=== PATIENT | male | born 1950 | race Caucasian/White ===

== ENCOUNTER 2024-12-21 15:51 | Observation (INO) | payer MEDICARE, MEDICAID, SELFPAY ==
[2024-12-21 16:00] VITALS: PULSE 68; RESP 16; O2SAT 97; BMI 24.4
[2024-12-21 16:13] VITALS: BP 98/60; PULSE 71; RESP 18; TEMP 37.1; O2SAT 98; BMI 24.4
--- NOTE | 2024-12-21 16:18 | XR_ITS ---
Examination: AP lateral chest 2 views TECHNIQUE: AP portable lateral chest 2 views Date and time: December 21, 2024 1630 hours Comparison July 07, 2022 INDICATION: Chest pain beginning 2 days ago. FINDINGS: Normal heart size Minimal stable scarring in the left base No interval pneumonia or pulmonary edema Moderate osteopenia IMPRESSION: No interval pneumonia or pulmonary edema
--- NOTE | 2024-12-21 16:18 | EKG_ITS ---
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
--- NOTE | 2024-12-21 16:19 | XR_ITS ---
Examination: CT abdomen and pelvis without contrast. Coronal 3-D reconstructions. Sagittal 2-D reconstructions. Date and time of exam:December 21, 2024 1637 hours INDICATIONS: Mid abdominal pain beginning several days ago CTDI: vol (mGy): 7.95 DLP: (mGycm): 393 Technique: Axial images of the abdomen have been obtained, 3 mm slice thickness Intravenous contrast material has not been administered. Low dose protocols were performed. One or more of the following dose reduction techniques were used; automated exposure control, adjustment of the mA and/or KV according to patient size, use of iterative reconstruction technique. Findings: No focal liver or splenic lesion Absent gallbladder Common bile duct 10 mm No pancreatic mass No hydronephrosis Fluid distended small bowel loops No pericecal inflammatory changes No bowel obstruction Colonic diverticulosis Acute diverticulitis junction distal descending colon and rectosigmoid No peridiverticular abscess Bilateral intact Extensive lumbar fusion with satisfactory alignment IMPRESSION: Acute diverticulitis junction distal descending colon and rectosigmoid No peridiverticular abscess
--- NOTE | 2024-12-21 16:19 | PD.EDRME ---
Rapid Medical Screening Exam RME Arrival date/time: 12/21/24 15:51 74-year-old male presents emergency department today for complaint of abdominal pain Chief Complaint: Abdominal Pain Time Seen by Provider: 12/21/24 16:03 Vital signs: Vital Signs Temperature 98.7 F 12/21/24 16:13 Pulse Rate 71 12/21/24 16:13 Respiratory Rate 18 12/21/24 16:13 Blood Pressure 98/60 12/21/24 16:13 Pulse Oximetry (%) 98 12/21/24 16:13 Oxygen Delivery Method Room Air 12/21/24 16:13
[2024-12-21 17:24] LABS: Basophils # (Auto) 0.1 Thou/mm3 (0.0-0.2); Basophils % (Auto) 1 % (0-2.5); Eosinophils # (Auto) 0.2 Thou/mm3 (0.0-0.5); Eosinophils % (Auto) 2 % (0-10); Hematocrit 31.5 % (41.0-53.0); Hemoglobin 10.7 g/dL (13.5-16.0); Immature Granulocytes % (Auto) 0 % (0-0); Immature Granulocytes Auto 0.02 Thou/mm3 (0.00-0.00); Lymphocytes # (Auto) 2.1 Thou/mm3 (1.0-4.8); Lymphocytes % (Auto) 23 % (10-50); Mean Corpuscular Hemoglobin 30.1 pg (25.0-35.0); Mean Corpuscular Volume 89 fL (80-100); Monocytes # (Auto) 0.7 Thou/mm3 (0.0-0.8); Monocytes % (Auto) 8 % (0-12); Neutrophils # (Auto) 6.2 Thou/mm3 (1.8-7.7); Neutrophils % (Auto) 66 % (37-80); Nucleated Red Blood Cell % 0 /100 WBC (0); Platelet Count 278 Thou/mm3 (140-440); RDW Standard Deviation 41.6 fL (35.1-43.9); Red Blood Count 3.55 Miln/mm3 (4.50-5.90); White Blood Count 9.4 Thou/mm3 (3.8-10.6)
[2024-12-21 17:30] LABS: Partial Thromboplastin Time 32.5 Seconds (22.0-36.0); Prothrombin Time 11.1 Seconds (9.0-12.2)
[2024-12-21 17:32] LABS: B-Type Natriuretic Peptide < 20 pg/mL (0-100)
[2024-12-21 17:44] LABS: Alanine Aminotransferase 9 U/L (10-49); Albumin, Serum 4.4 gm/dL (3.4-4.8); Albumin/Globulin Ratio 1.6 (1.2-2.2); Alkaline Phosphatase 79 U/L (46-116); Anion Gap 8 (7-16); Aspartate Amino Transferase 14 U/L (0-34); BUN/Creatinine Ratio 17 Ratio (12-20); Bilirubin,Total 0.2 mg/dL (0.3-1.2); Blood Urea Nitrogen 32 mg/dL (9-23); Calcium 8.9 mg/dL (8.3-10.6); Calcium (Corrected) 8.9 mg/dL (8.5-10.1); Carbon Dioxide 25.5 mMol/L (20.0-31.0); Chloride 105 mMol/L (98-107); Creatinine (Component) 1.9 mg/dL (0.6-1.3); Globulin 2.8 gm/dL (2.3-3.5); Glucose 110 mg/dL (74-106); LDH (Lactate Dehydrogenase) 140 U/L (120-246); Lipase 53 U/L (12-53); Magnesium 2.5 mg/dL (1.6-2.6); Osmolality,Calculated 283 (275-295); Potassium 5.9 mMol/L (3.4-5.1); Sodium 138 mMol/L (136-145); Total Protein 7.2 gm/dL (5.7-8.2); Troponin I < 0.002 ng/mL (0.0-0.045); eGFR 37 See Note
[2024-12-21 17:47] LABS: Collection Type, Urine Clean Catch
[2024-12-21 18:07] LABS: Amphetamine/Methamp Scrn,U Negative (Negative); Barbiturate Screen,Urine Negative (Negative); Benzodiazepines Screen,Urine Negative (Negative); Benzoylecgonine Screen, Ur Negative (Negative); Fentanyl Screen,Urine Negative (Negative); Opiate Screen,Urine Positive (Negative); THC Screen,Urine Negative (Negative)
[2024-12-21 18:35] LABS: Bilirubin,Urine Negative (Negative); Blood,Urine Negative (Negative); Clarity,Urine Clear (Clear/Hazy); Color,Urine Yellow (Lt Yel-Yel); Glucose, Urine Negative (Negative); Ketones,Urine Negative (Negative); Leukocyte Esterase,Urine Positive (Negative); Nitrite,Urine Positive (Negative); Protein,Urine Trace (Neg - Trace); Specific Gravity,Urine 1.017 (1.001-1.035); Urobilinogen,Urine Negative mg/dL (0.0-1.0)
[2024-12-21 18:36] LABS: RBC,Urine 2 /hpf (0-3); WBC,Urine 15 /hpf (0-5)
[2024-12-21 18:37] LABS: Bacteria,Urine 3+; Squamous Epithelial Cell,Urine 5 /hpf (0-5)
--- NOTE | 2024-12-21 20:33 | PD.EDABDPN ---
ED Abdominal Pain RME/HPI General Chief Complaint: Abdominal Pain Stated complaint: ABD PAIN Time seen by provider: 12/21/24 16:03 Arrival date/time: 12/21/24 15:51 RME / HPI RME / HPI narrative: 12/21/24 15:51 74-year-old male presents emergency department today for complaint of abdominal pain --------- Dr. Crow?s Main ED Evaluation: 74yo male with a history of DM presents to the ED for a chief complaint of mid abdominal pain x 1 month. Patient states his pain was initially mild in nature, reporting his pain has progressively gotten worse over the last few days. Patient endorses he felt lightheaded today, so he came in for evaluation. Patient denies any N/V, fever, chills, dysuria or any other associated symptoms. NKA. Patient states he has a caregiver at home. Related Data Home Medications ?Medication ?Instructions ?Recorded ?Confirmed amlodipine 5 mg tablet 5 mg PO QDAY 07/08/22 07/08/22 ammonium lactate 12 % topical cream 1 applic topical BID 07/08/22 07/08/22 dutasteride 0.5 mg capsule 0.5 mg PO QDAY 07/08/22 07/08/22 metformin 500 mg tablet 500 mg PO TID 07/08/22 07/08/22 misoprostol 200 mcg tablet 200 mcg PO BID 07/08/22 07/08/22 ramipril 10 mg capsule 10 mg PO BID 07/08/22 07/08/22 sitagliptin phosphate 100 mg 100 mg PO QDAY 07/08/22 07/08/22 tablet (Januvia) tamsulosin 0.4 mg capsule 0.8 mg PO QDAY 07/08/22 07/08/22 sennosides 8.6 mg tablet (senna) 8.6 mg PO BID 07/09/22 07/09/22 Previous Rx's ?Medication ?Instructions ?Recorded albuterol sulfate 90 mcg/actuation 1 inh inhalation QID PRN shortness 07/09/22 aerosol inhaler (Proventil HFA) of breath or wheezing #8.5 grams apixaban 5 mg (74 tabs) tablets in 5 mg PO BID pulmonary embolism #74 07/10/22 a dose pack (Eliquis DVT-PE Treat tabs 30D Start) levetiracetam 750 mg tablet 750 mg PO Q12H Seizures #14 tabs 07/10/22 (Keppra) Allergies Allergy/AdvReac Type Severity Reaction Status Date / Time No Known Allergies Allergy Verified 12/21/24 16:05 Review of Systems Review of Systems Systems Reviewed: All systems reviewed, normal except as documented Past Medical History Past Medical History CARDIAC: Negative Cardiac Disorders or Congestive Heart Failure RESPIRATORY: Negative Chronic Obstructive Pulmonary Disease (COPD) or Asthma GENITOURINARY: Negative Renal Disease ENDOCRINE: Positive Diabetes Mellitus Type 2; Negative Diabetes Mellitus Type 1 HEMATOLOGIC: Negative Sickle Cell Disease Social History SMOKING STATUS: Light (< 1 pack/day) ED Exam Narrative Physical exam: GENERAL APPEARANCE: alert and oriented x 4, well-developed, well-nourished, no acute distress VITALS: All vitals were reviewed and the pulse ox is 98% on room air, which is normal according to my interpretation. HEENT: Normocephalic, atraumatic; pupils equal, round, reactive to light; EOMI; mucous membranes pink, moist; oropharynx clear NECK: Supple LUNGS: CTABL; no wheezes, no rales, no rhonchi HEART: Regular rate, regular rhythm; normal S1, S2; no murmurs ABDOMEN: non distended; normal BS; soft, no tenderness, no guarding, no rebound; no masses, no organomegaly, no hernia BACK: no CVA tenderness EXTREMITIES: atraumatic; no edema NEUROLOGIC: awake; alert and oriented x4; cranial nerves II-XII grossly intact; no focal sensory or motor deficits PSYCHIATRIC: appropriate mood and affect SKIN: warm, dry, normal color; no rashes Course Quality Measures none Orders Category Date Time Status EKG (ED ONLY) *Do not use* NOW Care 12/21/24 16:[address] abdomen pelvis wo con Stat Exams 12/21/24 16:19 Completed EKG (ED Only) Stat Exams 12/21/24 16:18 Draft XR chest 2V Stat Exams 12/21/24 16:18 Completed B-Type Natriuretic Peptide Stat Lab 12/21/24 16:52 Completed BMP [Basic Metabolic Panel] Stat Lab 12/21/24 20:45 Completed CBC Stat Lab 12/21/24 16:52 Completed Comprehensive Metabolic Panel Stat Lab 12/21/24 16:52 Completed Drug Screen,Urine Stat Lab 12/21/24 17:41 Completed LDH (Lactate Dehydrogenase) Stat Lab 12/21/24 16:52 Completed Lipase Stat Lab 12/21/24 16:52 Completed Magnesium Stat Lab 12/21/24 16:52 Completed Partial Thromboplastin Time Stat Lab 12/21/24 16:52 Completed Prothrombin Time with INR Stat Lab 12/21/24 16:52 Completed Troponin I Stat Lab 12/21/24 16:52 Completed Urinalysis Stat Lab 12/21/24 17:41 Completed Amoxicillin/Pot Clav 875 [Augmentin 875] Med 12/21/24 20:42 Discontinued 1 tab PO X1 ONE Dextrose 50% Syr [D50w Syringe Abboject] Med 12/21/24 21:55 Discontinued 50 ml IV X1 ONE Insulin Regular Med 12/21/24 21:55 Discontinued 10 unit IV X1 ONE Piper/Tazo 3.375 gm Premix [Zosyn] Med 12/21/24 20:22 Discontinued 3.375 gm in 50 ml IV X1 Piper/Tazo 3.375 gm Premix [Zosyn] Med 12/21/24 21:53 Discontinued 3.375 gm in 50 ml IV X1 Sodium Chloride 0.9% 1000 ml [Ns] 1,000 ml Med 12/21/24 21:55 Discontinued IV 999 mls/hr Vital Signs Vital signs: Vital Signs Temperature 98.7 F 12/21/24 16:13 Pulse Rate 71 12/21/24 16:13 Respiratory Rate 18 12/21/24 16:13 Blood Pressure 98/60 12/21/24 16:13 Pulse Oximetry (%) 98 12/21/24 16:13 Oxygen Delivery Method Room Air 12/21/24 16:13 Abdominal Pain MDM MDM Narrative MDM Narrative:: Scribe Attestation: 12/21/24 - Cece Meng am scribing for and in the presence of Dr. Crow. Patient states he feels comfortable going home. Will follow the [place] [employer] guidelines for diverticulitis. Will prescribe the patient on Augmentin. Repeat Potassium is 6.1. Insulin and D50 ordered. Informed the patient that he will need to be admitted due to his abnormal labs and he is agreeable with the plan. 2156: Discussed case with Dr. Schneider, attending Dr. Sharif from Hospitalist service regarding admission. Discussed patients ED course, exam findings, labs, and radiology results. The Hospitalist agrees to accept the patient for admission. Patient data External records reviewed:: [facility] previous records (Per chart review, patient was admitted here on 07/07/22 for Influenza A.) Clinical information provided by:: patient Social determinants that could affect healthcare access:: none Patient has the following chronic illnesses:: DM How is presenting disease/condition affected by chronic disease/condition?: uneffected by Evaluation data The following diagnostics were reviewed and interpreted by me:: lab results and radiology exam(s) Lab and/or radiology exams considered but not ordered:: none Interpretation Summary: CBC is normal, PT and INR are normal, Potassium is 5.9, Creatinine is 1.9, Troponin is normal, BNP is normal, Lipase is normal, UA is positive for a UTI, UDS is positive for opiates, according to my interpretation. Repeat Potassium is 6.1. EKG done at 1623, NSR, rate of 71, left axis deviation, no ectopy, no acute ischemia, according to my interpretation. [facility] Report Signed Patient: TA OWENS [facility]. Record#: [id number] Birthdate: 1950 Age/Sex: 74 / M Location: [facility] Attending Dr: Ordering Physician: Jo COLES)Leon NP Date of Service: 12/21/24 Procedure(s): XR chest 2V Accession Number(s): [id number] cc: Jo COLES),Leon FOWLER; Robin Contreras MD~ Examination: AP lateral chest 2 views TECHNIQUE: AP portable lateral chest 2 views Date and time: December 21, 2024 1630 hours Comparison July 07, 2022 INDICATION: Chest pain beginning 2 days ago. FINDINGS: Normal heart size Minimal stable scarring in the left base No interval pneumonia or pulmonary edema Moderate osteopenia IMPRESSION: No interval pneumonia or pulmonary edema Dictated By: Robin Contreras MD Signed By: <Electronically signed by Robin Contreras MD in OV> 12/21/24 1640 [facility] Signed Patient: TA OWENS [facility]. Record#: [id number] Birthdate: 1950 Age/Sex: 74 / M Location: [facility] Attending Dr: Ordering Physician: Jo COLES)Leon NP Date of Service: 12/21/24 Procedure(s): CT abdomen pelvis wo con Accession Number(s): [id number] cc: Jo COLES),Leon FOWLER; Bina Melgar; Robin Contreras MD~ Examination: CT abdomen and pelvis without contrast. Coronal 3-D reconstructions. Sagittal 2-D reconstructions. Date and time of exam:December 21, 2024 1637 hours INDICATIONS: Mid abdominal pain beginning several days ago CTDI: vol (mGy): 7.95 DLP: (mGycm): 393 Technique: Axial images of the abdomen have been obtained, 3 mm slice thickness Intravenous contrast material has not been administered. Low dose protocols were performed. One or more of the following dose reduction techniques were used; automated exposure control, adjustment of the mA and/or KV according to patient size, use of iterative reconstruction technique. Findings: No focal liver or splenic lesion Absent gallbladder Common bile duct 10 mm No pancreatic mass No hydronephrosis Fluid distended small bowel loops No pericecal inflammatory changes No bowel obstruction Colonic diverticulosis Acute diverticulitis junction distal descending colon and rectosigmoid No peridiverticular abscess Bilateral intact Extensive lumbar fusion with satisfactory alignment IMPRESSION: Acute diverticulitis junction distal descending colon and rectosigmoid No peridiverticular abscess Dictated By: Robin Contreras MD Signed By: <Electronically signed by Robin Contreras MD in OV> 12/21/24 9822 Medications / Prescriptions Medications or Prescriptions considered but not ordered:: none Medication administrations:: Medication Administration History Acetaminophen (Acetaminophen 325 Mg Tablet) 650 mg PO Q6H PRN PRN Reason: Fever >101.5 Stop: 01/20/25 22:32 Heparin Sodium (Porcine) (Heparin Sod Inj 5000 Unit/Ml Vial) 5,000 unit SC Q8HR JESSIKA Stop: 01/05/25 05:59 Sodium Chloride (Ns) 1,000 mls @ 75 mls/hr IV .[id number] JESSIKA Stop: 01/20/25 22:44 Piperacillin/Tazobactam/Dextrose (Zosyn) 50 mls @ 100 mls/hr IV Q8HR [facility] Stop: 12/29/24 08:59 Levetiracetam (Levetiracetam 250 Mg Tablet) 750 mg PO BID [facility] Stop: 01/21/25 08:59 Metoclopramide HCl (Metoclopramide Inj 5 Mg/Ml Vial 2 Ml) 10 mg IVP Q6H PRN; Protocol PRN Reason: NAUSEA OR VOMITING Stop: 01/20/25 22:32 Pantoprazole Sodium (Pantoprazole Inj 40 Mg Vial) 40 mg IVP QDAY [facility] Stop: 01/21/25 08:59 Discontinued Medications Amoxicillin/Clavulanate Potassium (Amoxicillin/Pot Clav 875 Tablet) 1 tab PO X1 ONE Stop: 12/21/24 20:43 Last Admin: 12/21/24 21:31 Dose: 1 tab Documented By: Dextrose (Dextrose 50%-Water Inj 50 Ml Syringe) 50 ml IV X1 ONE Stop: 12/21/24 21:56 Piperacillin/Tazobactam/Dextrose (Zosyn) 3.375 gm in 50 mls @ 100 mls/hr IV X1 ONE Stop: 12/21/24 20:51 Last Admin: 12/21/24 21:38 Dose: Not Given Documented By: Non-Admin Reason: Cancelled by Provider Piperacillin/Tazobactam/Dextrose (Zosyn) 3.375 gm in 50 mls @ 100 mls/hr IV X1 ONE Stop: 12/21/24 22:22 Sodium Chloride (Ns) 1,000 mls @ 999 mls/hr IV .Q1H1M ONE Stop: 12/21/24 22:55 Insulin Human Regular (Insulin Hum Regular 1 Unit/0.01 Ml (Per Unit)) 10 unit IV X1 ONE Stop: 12/21/24 21:56 see above Consultations Consultation(s) initiated? (list below): Yes Diagnosis Differential diagnosis abdominal pain: acute appendicitis, diverticulitis, pancreatitis and other (perforated viscus, PUD) Most likely diagnosis given after review of the tests above:: diverticulitis, UTI, renal failure, hyperkalemia Admission Indicated Admission indicated?: indicated Admission Request Was there a request for admission?: Yes Admission Attestation Admission request attestation: Discussed case with [] from Hospitalist service regarding admission. Discussed patients ED course, exam findings, labs, and radiology results. The Hospitalist [agrees,declines] to accept the patient for admission. Disposition Plan Disposition Plan: Admit Discharge Plan Plan Patient Disposition: Admit Acute Care w/in Hospital Problem List Clinical Impression: Diverticulitis, UTI (urinary tract infection), Acute renal failure, Acute hyperkalemia
[2024-12-21] MEDS: AMOXICILLIN/POT CLAV 875 TABLET 1 TAB PO (21:31)
[2024-12-21 21:37] LABS: Anion Gap 6 (7-16); BUN/Creatinine Ratio 17 Ratio (12-20); Blood Urea Nitrogen 33 mg/dL (9-23); Calcium 9.1 mg/dL (8.3-10.6); Carbon Dioxide 24.9 mMol/L (20.0-31.0); Chloride 107 mMol/L (98-107); Creatinine (Component) 1.9 mg/dL (0.6-1.3); Glucose 114 mg/dL (74-106); Osmolality,Calculated 283 (275-295); Sodium 138 mMol/L (136-145); eGFR 37 See Note
[2024-12-21 21:45] LABS: Potassium 6.1 mMol/L (3.4-5.1)
[2024-12-21 21:56] VITALS: BP 119/73; PULSE 84; RESP 19; TEMP 36.6; O2SAT 98
--- NOTE | 2024-12-21 22:49 | PD.RESHP ---
Documentation for date of: 12/21/24 [facility] History of Present Illness History of present illness: 74-year-old male patient with significant medical history of tobacco use, COPD, PE (on Eliquis), seizure, hypertension, and diabetes presented with a chief complaint of abdominal pain. Patient has been having intermittent abdominal pain for the last few week which has progressed over time. He has had similar symptoms in the past. Patient denied NVD, fever, chills, dysuria, chest pain/pressure or other associated symptoms. Last bowel movement was yesterday which was normal in color and consistency. ED vitals were unremarkable, labs were significant for HgB 10.7, K 6.1, BUN 33, Sales And Marketing Specialist 1.9 (baseline 1.1), eGFR 37, glucose 114, UA positive for UTI and toxicology positive for opiates. Abdomen pelvis CT indicated acute diverticulitis junction distal descending colon and rectosigmoid. Patient will be admitted for diverticulitis and SARAHI. Medical Hx: COPD, PE, seizure, HTN, DM2, tobacco use Medication (need reconciliation): albuterol, amlodipine, eliquis, januvia, keppra, metformin, misoprostol, ramipril, tamsulosin Social Hx: 50+ pack year smoking history, social drinker, denied other illicit drug use Allergies: NKDA Code Status: Full Code Review of Systems Review of Systems Systems Reviewed: All systems reviewed, normal except as documented Exam Vital Signs Temp Pulse Resp BP Pulse Ox O2 Del Method 97.9 F 84 19 119/73 98 Room Air 12/21/24 21:56 12/21/24 21:56 12/21/24 21:56 12/21/24 21:56 12/21/24 21:56 12/21/24 21:56 Narrative Exam Constitutional: well-developed, well-nourished, in no acute distress, lying in bed HEENT: NCAT, EOMI, reactive round pupils b/l, patent nares b/l, moist mucous membranes Lung: CTAB, no wheezing, no rhonchi Heart: Regular S1S2, no murmurs, gallops, or rubs Abdomen: Soft, non-distended, non-tender, bowel sounds present throughout Extremities: No cyanosis, clubbing, or edema, LE pulses present b/l Neurologic: No focal sensory or motor deficits noted, AOx3, appropriate affect Skin: Warm, dry, xeroderma of head, hands and b/l LE noted Results: Labs 12/22/24 04:28 12/22/24 04:28 Labs: Short CBC 12/21/24 Range/Units 16:52 WBC 9.4 (3.8-10.6) Thou/mm3 Hgb 10.7 L (13.5-16.0) g/dL Hct 31.5 L (41.0-53.0) % Plt Count 278 (140-440) Thou/mm3 BMP 12/21/24 12/21/24 16:52 20:45 Sodium 138 138 Potassium 5.9 H 6.1 H* Chloride 105 107 Carbon Dioxide 25.5 24.9 BUN 32 H 33 H Creatinine 1.9 H 1.9 H Glucose 110 H 114 H Calcium 8.9 9.1 Cardiac Enzymes 12/21/24 Range/Units 16:52 Troponin I < 0.002 (0.0-0.045) ng/mL Liver Function 12/21/24 Range/Units 16:52 Total Bilirubin 0.2 L (0.3-1.2) mg/dL AST 14 (0-34) U/L ALT 9 L (10-49) U/L Alkaline Phosphatase 79 (46-116) U/L Albumin 4.4 (3.4-4.8) gm/dL Urine 12/21/24 Range/Units 17:41 Urine Color Yellow (Lt Yel-Yel) Urine Clarity Clear (Clear/Hazy) Urine pH 6.0 (5.0-7.0) Ur Specific [place] 1.017 (1.001-1.035) Urine Protein Trace (Neg - Trace) Urine Glucose (UA) Negative (Negative) Quality Measures Quality Measures none Advance care planning discussed with:: patient Medications Home Medications and Allergies Home Medications ?Medication ?Instructions ?Recorded ?Confirmed ?Type amlodipine 5 mg tablet 5 mg PO QDAY 07/08/22 07/08/22 History ammonium lactate 12 % topical cream 1 applic topical BID 07/08/22 07/08/22 History dutasteride 0.5 mg capsule 0.5 mg PO QDAY 07/08/22 07/08/22 History metformin 500 mg tablet 500 mg PO TID 07/08/22 07/08/22 History misoprostol 200 mcg tablet 200 mcg PO BID 07/08/22 07/08/22 History ramipril 10 mg capsule 10 mg PO BID 07/08/22 07/08/22 History sitagliptin phosphate 100 mg 100 mg PO QDAY 07/08/22 07/08/22 History tablet (Januvia) tamsulosin 0.4 mg capsule 0.8 mg PO QDAY 07/08/22 07/08/22 History sennosides 8.6 mg tablet (senna) 8.6 mg PO BID 07/09/22 07/09/22 History Allergies Allergy/AdvReac Type Severity Reaction Status Date / Time No Known Allergies Allergy Verified 12/21/24 16:05 Visit Medications Acetaminophen (Acetaminophen 325 Mg Tablet) 650 mg PO Q6H PRN PRN Reason: Fever >101.5 Stop: 01/20/25 22:32 Heparin Sodium (Porcine) (Heparin Sod Inj 5000 Unit/Ml Vial) 5,000 unit SC Q8HR [facility] Stop: 01/05/25 05:59 Sodium Chloride (Ns) 1,000 mls @ 999 mls/hr IV .Q1H1M ONE Stop: 12/21/24 22:55 Sodium Chloride (Ns) 1,000 mls @ 75 mls/hr IV .[id number] JESSIKA Stop: 01/20/25 22:44 Piperacillin/Tazobactam/Dextrose (Zosyn) 50 mls @ 100 mls/hr IV Q8HR [facility] Stop: 12/29/24 08:59 Metoclopramide HCl (Metoclopramide Inj 5 Mg/Ml Vial 2 Ml) 10 mg IVP Q6H PRN; Protocol PRN Reason: NAUSEA OR VOMITING Stop: 01/20/25 22:32 Pantoprazole Sodium (Pantoprazole Inj 40 Mg Vial) 40 mg IVP QDAY JESSIKA Stop: 01/21/25 08:59 Discontinued Medications Amoxicillin/Clavulanate Potassium (Amoxicillin/Pot Clav 875 Tablet) 1 tab PO X1 ONE Stop: 12/21/24 20:43 Last Admin: 12/21/24 21:31 Dose: 1 tab Dextrose (Dextrose 50%-Water Inj 50 Ml Syringe) 50 ml IV X1 ONE Stop: 12/21/24 21:56 Piperacillin/Tazobactam/Dextrose (Zosyn) 3.375 gm in 50 mls @ 100 mls/hr IV X1 ONE Stop: 12/21/24 20:51 Last Admin: 12/21/24 21:38 Dose: Not Given Piperacillin/Tazobactam/Dextrose (Zosyn) 3.375 gm in 50 mls @ 100 mls/hr IV X1 ONE Stop: 12/21/24 22:22 Insulin Human Regular (Insulin Hum Regular 1 Unit/0.01 Ml (Per Unit)) 10 unit IV X1 ONE Stop: 12/21/24 21:56 Assessment & Plan Plan 74-year-old male patient with significant medical history of tobacco use, COPD, PE (on Eliquis), seizure, hypertension, and diabetes presented with a chief complaint of abdominal pain. Patient has been having intermittent abdominal pain for the last few week which has progressed over time. Patient will be admitted for diverticulitis and SARAHI. #Diverticulitis Patient with progressive intermittent abdominal pain Abdomen/plevis CT indicative of acute diverticulitis junction distal descending colon and rectosigmoid Plan: -Zosyn IV started -Clear liquid diet, advance as tolerated -Tylenol for pain #Hyperkalemia On admission K+ of 5.9 which later uptrended to 6.1 ED administered insulin x1 EKG sinus rhythm with no T-wave changes Plan: -Kayexelate given -Follow up morning labs #SARAHI #UTI Patient with decreased water intake for last few weeks Admission lab significant for BUN 33, emt/paramedic 1.9, eGFR 37 UA+ for UTI Patient received 1L bolous NS Plan: -Maintenance IVF NS at 75 cc/hr -Continue IV Zosyn -Urine culture ordered #Seizure disorder Plan: -Continue home med Keppra 750mg BID -Seizure precaution -PRN Ativan for breakthrough #History of pulmonary emboli Patient with history of ?unprovoked PE On Eliquis 5mg BID Plan: -Resume home med Eliquis #COPD Patient with 50+ years of smoking Plan: -Duonebs Q6H PRN -Counseled on smoking cessation #DM2 Patient on home med Januvia and Metformin Last A1c 5.7 in 2021 Plan: -A1c ordered -Consider SSD #History of hypertenstion Admission BP WNL On home med amlodipine and ramipril Plan: -Hold of REGLA/ARB in setting of SARAHI -Consider restarting amlodipine Health Maintenance Dispo: Patient admitted for diverticulitis and SARAHI Diet: CLD, advance as tolerated DVT/PPx: Eliquis GI ppx: Protonix Lines: PIV Code Status: Full Code Attending Provider Attestation/Addendum I have examined the patient, reviewed labs and imaging findings, discussed the case with the resident(s), and reviewed entered orders. I agree with the plan of care as outlined in this note, with these additional summaries/recommendations: 74-year-old male with past medical history of 50+ pack years, COPD, PE on Eliquis, seizure disorder presented to the ED with a chief complaint of intermittent abdominal pain which has been worsened over the last few weeks. Patient found to have acute sigmoid diverticulitis without abscess formation and also found to have SARAHI with hyperkalemia. Repeat labs showed no improvement in SARAHI or potassium levels and will be admitted for acute sigmoid diverticulitis and management of SARAHI. Venkat Sharif MD
[2024-12-21 23:55] VITALS: BP 111/67; PULSE 74; RESP 17; TEMP 36.9; O2SAT 99
[2024-12-22] VITALS (25 sets, daily range): BP systolic 90–131; BP diastolic 53–69; PULSE 50–84; RESP 6–99; TEMP 36.1–36.9; O2SAT 96–100; BMI 23.7
[2024-12-22] MEDS: SODIUM CHLORIDE 0.9% 1000 ML 1,000 ML 999 ML IV (00:20)
[2024-12-22] MEDS: INSULIN HUM REGULAR 1 UNIT/0.01 ML (PER UNIT) 10 UNIT IV (00:20)
[2024-12-22] MEDS: PIPER/TAZO 3.375 GM PREMIX 3.375 GM/50 ML BAG IV ×4 (00:21→21:58)
[2024-12-22] MEDS: DEXTROSE 50%-WATER INJ 50 ML SYRINGE IV (00:21)
[2024-12-22] MEDS: SODIUM CHLORIDE 0.9% 1000 ML 1,000 ML 75 ML IV (01:56)
[2024-12-22] MEDS: SOD POLYSTYRENE SULFON SUSP 15 GM/60 ML BTL PO (02:04)
[2024-12-22 05:59] LABS: Basophils # (Auto) 0.1 Thou/mm3 (0.0-0.2); Basophils % (Auto) 1 % (0-2.5); Eosinophils # (Auto) 0.3 Thou/mm3 (0.0-0.5); Eosinophils % (Auto) 3 % (0-10); Hematocrit 30.2 % (41.0-53.0); Hemoglobin 10.5 g/dL (13.5-16.0); Immature Granulocytes % (Auto) 0 % (0-0); Immature Granulocytes Auto 0.02 Thou/mm3 (0.00-0.00); Lymphocytes # (Auto) 1.7 Thou/mm3 (1.0-4.8); Lymphocytes % (Auto) 17 % (10-50); Mean Corpuscular HGB Conc 34.8 g/dl (31.0-37.0); Mean Corpuscular Hemoglobin 30.4 pg (25.0-35.0); Mean Corpuscular Volume 88 fL (80-100); Monocytes % (Auto) 10 % (0-12); Neutrophils # (Auto) 6.9 Thou/mm3 (1.8-7.7); Neutrophils % (Auto) 70 % (37-80); Nucleated Red Blood Cell % 0 /100 WBC (0); Platelet Count 235 Thou/mm3 (140-440); Red Blood Count 3.45 Miln/mm3 (4.50-5.90)
[2024-12-22 06:30] LABS: Alanine Aminotransferase 8 U/L (10-49); Albumin, Serum 3.9 gm/dL (3.4-4.8); Albumin/Globulin Ratio 1.6 (1.2-2.2); Alkaline Phosphatase 74 U/L (46-116); Anion Gap 9 (7-16); Aspartate Amino Transferase 13 U/L (0-34); BUN/Creatinine Ratio 18 Ratio (12-20); Bilirubin,Total 0.3 mg/dL (0.3-1.2); Blood Urea Nitrogen 32 mg/dL (9-23); Calcium 8.3 mg/dL (8.3-10.6); Calcium (Corrected) 8.4 mg/dL (8.5-10.1); Carbon Dioxide 23.8 mMol/L (20.0-31.0); Chloride 109 mMol/L (98-107); Creatinine (Component) 1.8 mg/dL (0.6-1.3); Estimated Creatinine Clearance 40.1 mL/min (>60); Globulin 2.5 gm/dL (2.3-3.5); Glucose 136 mg/dL (74-106); Magnesium 2.3 mg/dL (1.6-2.6); Osmolality,Calculated 292 (275-295); Phosphorous 3.4 mg/dL (2.4-5.1); Potassium 4.6 mMol/L (3.4-5.1); Sodium 142 mMol/L (136-145); Total Protein 6.4 gm/dL (5.7-8.2); eGFR 39 See Note
[2024-12-22] MEDS: levETIRAcetam 250 MG TABLET 750 MG PO ×3 (09:00→22:02)
[2024-12-22] MEDS: ACETAMINOPHEN 325 MG TABLET 650 MG PO (09:01)
[2024-12-22] MEDS: PANTOPRAZOLE INJ 40 MG VIAL IVP (09:01)
[2024-12-22] MEDS: CALCIUM CARBONATE 600 MG TABLET PO (09:07)
[2024-12-22] MEDS: APIXABAN 2.5 MG TABLET 5 MG PO ×2 (09:40→22:02)
--- NOTE | 2024-12-22 10:47 | ESPR_ITS ---
<Statement entered by Josh Mijares MD - 12/27/24 16:23> I reviewed above note and agree with findings and plans. I have also personally examined the patient with medicine team and went over assessment and plan with medical team including intern brand and resident physician. Documentation for date of: 12/22/24 Subjective Subjective Interval history: 12/22/2024: Overnight admission for 74-year-old male with past medical history of seizures, COPD, CKD stage IIIb, hypertension, PE on Eliquis presenting to the hospital with abdominal pain found to have diverticulitis in the descending colon in the rectosigmoid area without abscess. Patient seen and examined in hospital bed reporting persistent mild abdominal pain diffusely; however, denies having any concerning cardiac symptoms at this time such as chest pain/shortness of breath/palpitations or new dizziness. Patient understands a plan will be continued on IV fluid resuscitation along with IV antibiotics for diverticulitis. Exam Vital Signs Temp Pulse Resp BP Pulse Ox O2 Del Method 97.8 F 78 25 H 100/64 100 Room Air 12/22/24 08:06 12/22/24 09:00 12/22/24 09:00 12/22/24 09:00 12/22/24 09:00 12/22/24 07:54 Narrative Exam Physical Exam: GENERAL: awake, answering questions appropriately, appears stated age HEENT: NC/AT. Moist mucosa. PERRLA/EOMI. CARDIO: Heart RRR, no obvious murmurs, no JVD. PULM: No coughing or visible SOB. Lungs CTA B/L. GI: Abdomen soft, NT/ND, +BS. SKIN/MSK/EXT: Lichen planus and nail left third phalange. No wounds/rashes/edema/amputations noted. +Pedal pulses present B/L. NEURO: Oriented x3. Moves extremities x4, no focal neurologic deficits noted Objective Labs 12/22/24 04:28 12/22/24 04:28 Labs: Laboratory Results - last 24 hr 12/21/24 12/21/24 12/21/24 16:52 17:41 20:45 WBC 9.4 RBC 3.55 L Hgb 10.7 L Hct 31.5 L MCV 89 MCH 30.1 MCHC 34.0 RDW Std Deviation 41.6 Plt Count 278 Neut % (Auto) 66 Lymph % (Auto) 23 [place] % (Auto) 8 Eos % (Auto) 2 Baso % (Auto) 1 Neut # (Auto) 6.2 Lymph # (Auto) 2.1 [place] # (Auto) 0.7 Eos # (Auto) 0.2 Baso # (Auto) 0.1 Immature Gran # (Auto) 0.02 H Absolute Nucleated RBC 0.00 Immature Gran % 0 Nucleated RBC % 0 PT 11.1 INR 1.0 APTT 32.5 Sodium 138 138 Potassium 5.9 H 6.1 H* Chloride 105 107 Carbon Dioxide 25.5 24.9 Anion Gap 8 6 L BUN 32 H 33 H Creatinine 1.9 H 1.9 H Estim Creat Clear Calc 38.0 L 38.0 L eGFR 37 L 37 L BUN/Creatinine Ratio 17 17 Glucose 110 H 114 H Calculated Osmolality 283 283 Calcium 8.9 9.1 Corrected Calcium 8.9 Phosphorus Magnesium 2.5 Total Bilirubin 0.2 L AST 14 ALT 9 L Alkaline Phosphatase 79 Lactate Dehydrogenase 140 Troponin I < 0.002 B-Natriuretic Peptide < 20 Total Protein 7.2 Albumin 4.4 Globulin 2.8 Albumin/Globulin Ratio 1.6 Lipase 53 Ur Collection Type Clean Catch Urine Color Yellow Urine Clarity Clear Urine pH 6.0 Ur Specific [place] 1.017 Urine Protein Trace Urine Glucose (UA) Negative Urine Ketones Negative Urine Blood Negative Urine Nitrite Positive Urine Bilirubin Negative Urine Urobilinogen (Auto) Negative Ur Leukocyte Esterase Positive Urine RBC 2 Urine WBC 15 H Ur Squamous Epith Cells 5 Urine Bacteria 3+ A Urine Opiates Screen Positive A Urine Fentanyl Screen Negative Ur Barbiturates Screen Negative U Amphetamin/Meth Scrn Negative U Benzodiazepines Scrn Negative U Cocaine Metab Screen Negative U Marijuana (THC) Screen Negative 12/22/24 04:28 WBC 10.0 RBC 3.45 L Hgb 10.5 L Hct 30.2 L MCV 88 MCH 30.4 MCHC 34.8 RDW Std Deviation 41.0 Plt Count 235 D Neut % (Auto) 70 Lymph % (Auto) 17 [place] % (Auto) 10 Eos % (Auto) 3 Baso % (Auto) 1 Neut # (Auto) 6.9 Lymph # (Auto) 1.7 [place] # (Auto) 1.0 H Eos # (Auto) 0.3 Baso # (Auto) 0.1 Immature Gran # (Auto) 0.02 H Absolute Nucleated RBC 0.00 Immature Gran % 0 Nucleated RBC % 0 PT INR APTT Sodium 142 Potassium 4.6 D Chloride 109 H Carbon Dioxide 23.8 Anion Gap 9 BUN 32 H Creatinine 1.8 H Estim Creat Clear Calc 40.1 L eGFR 39 L BUN/Creatinine Ratio 18 Glucose 136 H Calculated Osmolality 292 Calcium 8.3 Corrected Calcium 8.4 L Phosphorus 3.4 Magnesium 2.3 Total Bilirubin 0.3 AST 13 ALT 8 L Alkaline Phosphatase 74 Lactate Dehydrogenase Troponin I B-Natriuretic Peptide Total Protein 6.4 Albumin 3.9 D Globulin 2.5 Albumin/Globulin Ratio 1.6 Lipase Ur Collection Type Urine Color Urine Clarity Urine pH Ur Specific [place] Urine Protein Urine Glucose (UA) Urine Ketones Urine Blood Urine Nitrite Urine Bilirubin Urine Urobilinogen (Auto) Ur Leukocyte Esterase Urine RBC Urine WBC Ur Squamous Epith Cells Urine Bacteria Urine Opiates Screen Urine Fentanyl Screen Ur Barbiturates Screen U Amphetamin/Meth Scrn U Benzodiazepines Scrn U Cocaine Metab Screen U Marijuana (THC) Screen Quality Measures Quality Measures none Advance care planning discussed with:: patient Assessment & Plan Assessment Current Active Medications: Generic Name Dose Route Start Last Admin Trade Name Freq PRN Reason Stop Dose Admin Acetaminophen 650 mg 12/21/24 22:33 12/22/24 09:01 Acetaminophen 325 Mg Tablet PO 01/20/25 22:32 650 mg Q6H PRN Administration Fever >101.5 Albuterol/Ipratropium 3 ml 12/22/24 01:06 Albuterol/Ipratropium (Duoneb) Rt Cindy 3 Ml Nebu INH 01/21/25 06:59 Q6HRRT PRN sob Apixaban 5 mg 12/22/24 09:00 12/22/24 09:40 Apixaban 2.5 Mg Tablet PO 01/12/25 08:59 5 mg BID JESSIKA Administration Piperacillin/Tazobactam/Dextrose 3.375 gm in 50 mls @ 12.5 mls/hr 12/22/24 06:15 12/22/24 09:13 Zosyn IV 12/29/24 06:14 Infused Q8HR JESSIKA Infusion Sodium Chloride 1,000 mls @ 100 mls/hr 12/22/24 09:33 Ns IV 01/21/25 09:32 .Q10H JESSIKA Levetiracetam 750 mg 12/22/24 09:00 12/22/24 09:00 Levetiracetam 250 Mg Tablet PO 01/21/25 08:59 750 mg BID JESSIKA Administration Lorazepam 2 mg 12/22/24 01:05 Lorazepam 2 Mg/Ml Vial IVP 12/27/24 01:14 Q5M PRN Seizure breakthrough Metoclopramide HCl 10 mg 12/21/24 22:33 Metoclopramide Inj 5 Mg/Ml Vial 2 Ml IVP 01/20/25 22:32 Q6H PRN NAUSEA OR VOMITING Protocol Pantoprazole Sodium 40 mg 12/22/24 09:00 12/22/24 09:01 Pantoprazole Inj 40 Mg Vial IVP 01/21/25 08:59 40 mg QDAY JESSIKA Administration Plan 74-year-old male patient with significant medical history of tobacco use, COPD, PE (on Eliquis), seizure, hypertension, and diabetes presented with a chief complaint of abdominal pain. Patient has been having intermittent abdominal pain for the last few week which has progressed over time. Patient will be admitted for diverticulitis and SARAHI. 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 Patient's left third phalange has lichenified growth affecting nail bed Patient made aware that he needs to follow-up with PCP; Dr. Mukherjee, for possible biopsy Plan: Follow-up with PCP #Hyperkalemia, resolved On admission K+ of 5.9 which later uptrended to 6.1 ED administered insulin x1 EKG sinus rhythm with no T-wave changes Kayexelate given Plan: Follow up morning labs #Seizure disorder Patient has longstanding history of seizure disorder on home Keppra 750 mg p.o. twice daily Plan: Continue home medication Seizure precaution PRN Ativan for breakthrough #History of pulmonary emboli Patient with history of PE On Eliquis 5mg BID Plan: Continue home med Eliquis #COPD Patient with 50+ years of smoking Plan: Duonebs Q6H PRN Counseled on smoking cessation #History of hypertenstion Admission BP WNL and remains On home med amlodipine and ramipril Plan: Hold of REGLA/ARB in setting of SARAHI Will consider restarting amlodipine Hospital Management: Dispo: IV antibiotics for diverticulitis and IV fluids for SARAHI, pending urine cultures Diet: CLD, advance as tolerated DVT/PPx: Eliquis GI ppx: Protonix Lines: PIV Code Status: Full Code Patient seen and assessed with attending Dr. Maryana العراقي, PGY-1
[2024-12-22] MEDS: HYDROcodone/APAP 5/325 TABLET 1 TAB PO ×2 (11:32→16:32)
[2024-12-22] MEDS: SODIUM CHLORIDE 0.9% 1000 ML 1,000 ML 100 ML IV (14:13)
[2024-12-23] VITALS (8 sets, daily range): BP systolic 92–110; BP diastolic 53–69; PULSE 45–61; RESP 14–97; TEMP 36–36.7; O2SAT 93–100
[2024-12-23] MEDS: SODIUM CHLORIDE 0.9% 1000 ML 1,000 ML 100 ML IV ×2 (01:29→11:34)
[2024-12-23] MEDS: PIPER/TAZO 3.375 GM PREMIX 3.375 GM/50 ML BAG IV ×3 (05:54→22:10)
[2024-12-23] MEDS: HYDROcodone/APAP 5/325 TABLET 1 TAB PO ×3 (05:58→19:12)
[2024-12-23 06:05] LABS: Basophils # (Auto) 0.1 Thou/mm3 (0.0-0.2); Basophils % (Auto) 1 % (0-2.5); Eosinophils # (Auto) 0.2 Thou/mm3 (0.0-0.5); Eosinophils % (Auto) 4 % (0-10); Hematocrit 28.8 % (41.0-53.0); Hemoglobin 9.6 g/dL (13.5-16.0); Immature Granulocytes % (Auto) 0 % (0-0); Immature Granulocytes Auto 0.02 Thou/mm3 (0.00-0.00); Lymphocytes # (Auto) 1.6 Thou/mm3 (1.0-4.8); Lymphocytes % (Auto) 29 % (10-50); Mean Corpuscular HGB Conc 33.3 g/dl (31.0-37.0); Mean Corpuscular Hemoglobin 30.5 pg (25.0-35.0); Mean Corpuscular Volume 91 fL (80-100); Monocytes # (Auto) 0.5 Thou/mm3 (0.0-0.8); Monocytes % (Auto) 10 % (0-12); Neutrophils # (Auto) 3.2 Thou/mm3 (1.8-7.7); Neutrophils % (Auto) 57 % (37-80); Nucleated Red Blood Cell % 0 /100 WBC (0); Platelet Count 236 Thou/mm3 (140-440); RDW Standard Deviation 42.5 fL (35.1-43.9); Red Blood Count 3.15 Miln/mm3 (4.50-5.90); White Blood Count 5.6 Thou/mm3 (3.8-10.6)
[2024-12-23 06:47] LABS: Alanine Aminotransferase 7 U/L (10-49); Albumin, Serum 3.6 gm/dL (3.4-4.8); Albumin/Globulin Ratio 1.5 (1.2-2.2); Alkaline Phosphatase 68 U/L (46-116); Anion Gap 7 (7-16); Aspartate Amino Transferase 13 U/L (0-34); BUN/Creatinine Ratio 12 Ratio (12-20); Bilirubin,Total 0.4 mg/dL (0.3-1.2); Blood Urea Nitrogen 19 mg/dL (9-23); Calcium 7.9 mg/dL (8.3-10.6); Calcium (Corrected) 8.2 mg/dL (8.5-10.1); Carbon Dioxide 23.4 mMol/L (20.0-31.0); Chloride 112 mMol/L (98-107); Creatinine (Component) 1.6 mg/dL (0.6-1.3); Estimated Creatinine Clearance 46.5 mL/min (>60); Globulin 2.4 gm/dL (2.3-3.5); Glucose 92 mg/dL (74-106); Osmolality,Calculated 285 (275-295); Phosphorous 3.3 mg/dL (2.4-5.1); Potassium 4.8 mMol/L (3.4-5.1); Sodium 142 mMol/L (136-145); eGFR 45 See Note
--- NOTE | 2024-12-23 07:11 | ESPR_ITS ---
<Statement entered by Josh Mijares MD - 12/27/24 16:24> I reviewed above note and agree with findings and plans. I have also personally examined the patient with medicine team and went over assessment and plan with medical team including pharmacy graduate intern and resident physician. Documentation for date of: 12/23/24 Subjective Subjective Interval history: 12/23/2024: Patient seen and examined; will continue current management and transition the patient from IV antibiotics to PO. Exam Vital Signs Temp Pulse Resp BP Pulse Ox O2 Del Method 97.7 F 61 16 92/57 L 97 Room Air 12/23/24 04:00 12/23/24 06:55 12/23/24 06:55 12/23/24 04:00 12/23/24 06:55 12/23/24 04:00 Narrative Exam Physical Exam: GENERAL: awake, answering questions appropriately, appears stated age HEENT: NC/AT. Moist mucosa. PERRLA/EOMI. CARDIO: Heart RRR, no obvious murmurs, no JVD. PULM: No coughing or visible SOB. Lungs CTA B/L. GI: Abdomen soft, NT/ND, +BS. SKIN/MSK/EXT: Lichen planus and nail left third phalange. No wounds/rashes/edema/amputations noted. +Pedal pulses present B/L. NEURO: Oriented x3. Moves extremities x4, no focal neurologic deficits noted Objective Labs 12/23/24 04:59 12/23/24 04:59 Labs: Laboratory Results - last 24 hr 12/23/24 04:59 WBC 5.6 D RBC 3.15 L Hgb 9.6 L Hct 28.8 L MCV 91 MCH 30.5 MCHC 33.3 RDW Std Deviation 42.5 Plt Count 236 Neut % (Auto) 57 Lymph % (Auto) 29 [place] % (Auto) 10 Eos % (Auto) 4 Baso % (Auto) 1 Neut # (Auto) 3.2 Lymph # (Auto) 1.6 [place] # (Auto) 0.5 Eos # (Auto) 0.2 Baso # (Auto) 0.1 Immature Gran # (Auto) 0.02 H Absolute Nucleated RBC 0.00 Immature Gran % 0 Nucleated RBC % 0 Sodium 142 Potassium 4.8 Chloride 112 H Carbon Dioxide 23.4 Anion Gap 7 BUN 19 Creatinine 1.6 H Estim Creat Clear Calc 46.5 L eGFR 45 L BUN/Creatinine Ratio 12 Glucose 92 Calculated Osmolality 285 Calcium 7.9 L Corrected Calcium 8.2 L Phosphorus 3.3 Magnesium 2.0 Total Bilirubin 0.4 AST 13 ALT 7 L Alkaline Phosphatase 68 Total Protein 6.0 Albumin 3.6 Globulin 2.4 Albumin/Globulin Ratio 1.5 Quality Measures Quality Measures none Advance care planning discussed with:: patient Assessment & Plan Assessment Current Active Medications: Generic Name Dose Route Start Last Admin Trade Name Freq PRN Reason Stop Dose Admin Acetaminophen 650 mg 12/22/24 10:48 Acetaminophen 325 Mg Tablet PO 01/20/25 22:32 Q6H PRN Pain 1-3 and/or Fever >100.1 Hydrocodone Bitart/Acetaminophen 1 tab 12/22/24 10:47 12/23/24 05:58 Hydrocodone/Apap 5/325 Tablet PO 12/27/24 10:46 1 tab Q4HR PRN Administration Pain 4-6 Hydrocodone Bitart/Acetaminophen 1 tab 12/22/24 10:47 Hydrocodone/Apap 10/325 Tab PO 12/27/24 10:46 Q6HR PRN Pain 7-10 Albuterol/Ipratropium 3 ml 12/22/24 01:06 Albuterol/Ipratropium (Duoneb) Rt Cindy 3 Ml Nebu INH 01/21/25 06:59 Q6HRRT PRN sob Apixaban 5 mg 12/22/24 09:00 12/22/24 22:02 Apixaban 2.5 Mg Tablet PO 01/12/25 08:59 5 mg BID JESSIKA Administration Piperacillin/Tazobactam/Dextrose 3.375 gm in 50 mls @ 12.5 mls/hr 12/22/24 06:15 12/23/24 05:54 Zosyn IV 12/29/24 06:14 12.5 mls/hr Q8HR JESSIKA Administration Levetiracetam 750 mg 12/22/24 09:00 12/22/24 22:02 Levetiracetam 250 Mg Tablet PO 01/21/25 08:59 750 mg BID JESSIKA Administration Lorazepam 2 mg 12/22/24 01:05 Lorazepam 2 Mg/Ml Vial IVP 12/27/24 01:14 Q5M PRN Seizure breakthrough Metoclopramide HCl 10 mg 12/21/24 22:33 Metoclopramide Inj 5 Mg/Ml Vial 2 Ml IVP 01/20/25 22:32 Q6H PRN NAUSEA OR VOMITING Protocol Midodrine 5 mg 12/23/24 07:07 Midodrine 5 Mg Tablet PO 01/22/25 08:59 BID PRN SBP <90 Pantoprazole Sodium 40 mg 12/22/24 09:00 12/22/24 09:01 Pantoprazole Inj 40 Mg Vial IVP 01/21/25 08:59 40 mg QDAY JESSIKA Administration Plan 74-year-old male patient with significant medical history of tobacco use, COPD, PE (on Eliquis), seizure, hypertension, and diabetes presented with a chief complaint of abdominal pain. Patient has been having intermittent abdominal pain for the last few week which has progressed over time. Patient will be admitted for diverticulitis and SARAHI. 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 Patient's left third phalange has lichenified growth affecting nail bed Patient made aware that he needs to follow-up with PCP; Dr. Mukherjee, for possible biopsy Plan: Follow-up with PCP #Hyperkalemia, resolved On admission K+ of 5.9 which later uptrended to 6.1 ED administered insulin x1 EKG sinus rhythm with no T-wave changes Kayexelate given Plan: Follow up morning labs #Seizure disorder Patient has longstanding history of seizure disorder on home Keppra 750 mg p.o. twice daily Plan: Continue home medication Seizure precaution PRN Ativan for breakthrough #History of pulmonary emboli Patient with history of PE On Eliquis 5mg BID Plan: Continue home med Eliquis #COPD Patient with 50+ years of smoking Plan: Duonebs Q6H PRN Counseled on smoking cessation #History of hypertenstion Admission BP WNL and remains On home med amlodipine and ramipril Plan: Hold of REGLA/ARB in setting of SARAHI Will consider restarting amlodipine Hospital Management: Dispo: IV antibiotics for diverticulitis and IV fluids for SARAHI, pending urine cultures Diet: CLD, advance as tolerated DVT/PPx: Eliquis GI ppx: Protonix Lines: PIV Code Status: Full Code Patient seen and assessed with attending Dr. Maryana العراقي, PGY-1
[2024-12-23] MEDS: levETIRAcetam 250 MG TABLET 750 MG PO ×2 (07:52→22:10)
[2024-12-23] MEDS: APIXABAN 2.5 MG TABLET 5 MG PO ×2 (07:52→22:10)
[2024-12-23] MEDS: PANTOPRAZOLE INJ 40 MG VIAL IVP (07:52)
--- NOTE | 2024-12-23 16:35 | PC.NURSE ---
[facility] occurred on 12/23/2024 from [id number].
[2024-12-24] VITALS (7 sets, daily range): BP systolic 107–130; BP diastolic 61–74; PULSE 52–69; RESP 14–99; TEMP 35.9–36.2; O2SAT 97–99
[2024-12-24 06:54] LABS: Basophils # (Auto) 0.1 Thou/mm3 (0.0-0.2); Basophils % (Auto) 1 % (0-2.5); Eosinophils # (Auto) 0.2 Thou/mm3 (0.0-0.5); Eosinophils % (Auto) 5 % (0-10); Hematocrit 28.8 % (41.0-53.0); Hemoglobin 9.5 g/dL (13.5-16.0); Immature Granulocytes % (Auto) 0 % (0-0); Immature Granulocytes Auto 0.01 Thou/mm3 (0.00-0.00); Lymphocytes # (Auto) 1.6 Thou/mm3 (1.0-4.8); Lymphocytes % (Auto) 33 % (10-50); Mean Corpuscular Volume 91 fL (80-100); Monocytes # (Auto) 0.6 Thou/mm3 (0.0-0.8); Monocytes % (Auto) 11 % (0-12); Neutrophils # (Auto) 2.5 Thou/mm3 (1.8-7.7); Neutrophils % (Auto) 50 % (37-80); Nucleated Red Blood Cell % 0 /100 WBC (0); Platelet Count 226 Thou/mm3 (140-440); RDW Standard Deviation 41.6 fL (35.1-43.9); Red Blood Count 3.17 Miln/mm3 (4.50-5.90); White Blood Count 4.9 Thou/mm3 (3.8-10.6)
[2024-12-24 07:10] LABS: Alanine Aminotransferase 11 U/L (10-49); Albumin, Serum 3.7 gm/dL (3.4-4.8); Albumin/Globulin Ratio 1.5 (1.2-2.2); Alkaline Phosphatase 65 U/L (46-116); Anion Gap 7 (7-16); Aspartate Amino Transferase 17 U/L (0-34); BUN/Creatinine Ratio 10 Ratio (12-20); Bilirubin,Total 0.3 mg/dL (0.3-1.2); Blood Urea Nitrogen 16 mg/dL (9-23); Calcium 8.2 mg/dL (8.3-10.6); Calcium (Corrected) 8.4 mg/dL (8.5-10.1); Carbon Dioxide 24.9 mMol/L (20.0-31.0); Chloride 111 mMol/L (98-107); Creatinine (Component) 1.6 mg/dL (0.6-1.3); Estimated Creatinine Clearance 46.5 mL/min (>60); Globulin 2.4 gm/dL (2.3-3.5); Glucose 100 mg/dL (74-106); Osmolality,Calculated 286 (275-295); Phosphorous 2.9 mg/dL (2.4-5.1); Potassium 4.9 mMol/L (3.4-5.1); Sodium 143 mMol/L (136-145); Total Protein 6.1 gm/dL (5.7-8.2); eGFR 45 See Note
[2024-12-24] MEDS: PIPER/TAZO 3.375 GM PREMIX 3.375 GM/50 ML BAG IV (07:32)
[2024-12-24] MEDS: APIXABAN 2.5 MG TABLET 5 MG PO (08:08)
[2024-12-24] MEDS: CALCIUM CARBONATE 600 MG TABLET PO (08:08)
[2024-12-24] MEDS: levETIRAcetam 250 MG TABLET 750 MG PO (08:08)
[2024-12-24] MEDS: HYDROcodone/APAP 5/325 TABLET 1 TAB PO (08:08)
[2024-12-24] MEDS: PANTOPRAZOLE INJ 40 MG VIAL IVP (08:08)
--- NOTE | 2024-12-24 09:51 | ESDS_ITS ---
<Statement entered by Josh Mijares MD - 12/27/24 16:25> I reviewed above note and agree with findings and plans. I have also personally examined the patient with medicine team and went over assessment and plan with medical team including campus recruiting intern and resident physician. <Statement entered by Manolo Wilde MD - 12/24/24 17:54> Patient was examined with the team including attending physician. Note reviewed, I agree with the discharge plan as documented. - Manolo Wilde MD PGY2 Disclaimer: The document may contain phonetic/typographic errors due to voice recognition software. These errors are purely due to imperfections in the software program and should not be misconstrued in any way to compromise the parra bstance of the patient's medical care during this visit. Planned Discharge Date 12/24/24 DS: Providers Provider Date of admission: 12/21/24 22:33 Primary care physician: ABIMBOLA Ponce Admitting Provider: Venkat Sharif MD Attending Provider on Admission: Venkat Sharif MD Attending Provider on DC: Ga العراقي MD Discharging Provider: Ga العراقي MD DS: Diagnosis Problem List Completed Was Problem List Reviewed/Reconciled?: Yes Hospital Course Hospital Course Hospital course: 74-year-old male with past medical history of tobacco use, COPD, PE on Eliquis, seizure, hypertension and diabetes presents to the ED with chief complaint of abdominal pain on 12/21. In the ED, vitals were unremarkable but labs were significant for creatinine 1.9 with baseline of 1.1, CT abdomen pelvis indicated acute diverticulitis in the junction of the distal descending colon and rectosigmoid area. Patient was admitted and started on IV antibiotics and IV fluid resuscitation. During hospitalization stay, patient's steadily improved throughout the days and diet was started. Patient was able to tolerate clear liquid diet which was later advanced to pur?ed. Patient will be transition from IV antibiotics to p.o. and will be discharged with the following strict instructions. Please take levofloxacin 750 mg tablet by mouth daily for four additional days for diverticulitis Please take metronidazole 500 mg tablet by mouth every 8 hours for four additional days for diverticulitis Follow-up with your PCP within 1 week after discharge; ask your PCP to biopsy your finger If your symptoms worsen or if you develop new chest pain, shortness of breath, dizziness or severe abdominal pain/bleeding - please come back to the ED immediately. Hospital Diagnosis: #Descending colon and rectosigmoid diverticulitis #Acute kidney injury, improving #UTI #Lichen Planus Nail? #Hyperkalemia, resolved #Seizure disorder #History of pulmonary emboli #COPD #Hypertenstion Ga العراقي, PGY-1 Status at Discharge Overall status at discharge: patient is progressing back to baseline Time Spent with Patient Time attestation: Total time spent providing and/or coordinating discharge services: 45 minutes Time spent: Greater than 30 minutes Exam Vital Signs Temp Pulse Resp BP Pulse Ox O2 Del Method 97.0 F 57 L 19 119/63 99 Room Air 12/24/24 08:00 12/24/24 08:00 12/24/24 08:00 12/24/24 08:00 12/24/24 08:00 12/24/24 08:00 Narrative Exam Physical Exam: GENERAL: awake, answering questions appropriately, appears stated age HEENT: NC/AT. Moist mucosa. PERRLA/EOMI. CARDIO: Heart RRR, no obvious murmurs, no JVD. PULM: No coughing or visible SOB. Lungs CTA B/L. GI: Abdomen soft, NT/ND, +BS. SKIN/MSK/EXT: Lichen planus and nail left third phalange. No wounds/rashes/edema/amputations noted. +Pedal pulses present B/L. NEURO: Oriented x3. Moves extremities x4, no focal neurologic deficits noted Discharge Plan Plan Patient Disposition: HOME (Self Care) Patient condition on transfer: Stable Care Plan Goals: Please take levofloxacin 750 mg tablet by mouth daily for four additional days for diverticulitis Please take metronidazole 500 mg tablet by mouth every 8 hours for four additional days for diverticulitis Follow-up with your PCP within 1 week after discharge; ask your PCP to biopsy your finger If your symptoms worsen or if you develop new chest pain, shortness of breath, dizziness or severe abdominal pain/bleeding - please come back to the ED immediately. Prescriptions/Referrals Prescriptions/Med Rec: New levofloxacin 750 mg tablet 750 mg PO QDAY 4 Days Qty: 4 0RF metronidazole 500 mg tablet 500 mg PO Q8H 4 Days Qty: 12 0RF Continued ramipril 10 mg capsule 10 mg PO BID Januvia 100 mg tablet 100 mg PO QDAY Patient Comments: TAKE 1 TABLET BY MOUTH EVERY DAY metformin 500 mg tablet 500 mg PO TID Patient Comments: TAKE 1 TABLET BY MOUTH twice a day amlodipine 5 mg tablet 5 mg PO QDAY Patient Comments: TAKE 1 TABLET BY MOUTH EVERY DAY tamsulosin 0.4 mg capsule 0.4 mg PO BID dutasteride 0.5 mg capsule 0.5 mg PO QDAY Patient Comments: TAKE 1 CAPSULE BY MOUTH DAILY sennosides [senna] 8.6 mg Tablet 8.6 mg PO BID albuterol sulfate [Proventil HFA] 90 mcg/actuation HFA aerosol inhaler 1 inh inhalation QID PRN (Reason: shortness of breath or wheezing) Qty: 8.5 0RF Eliquis DVT-PE Treat 30D Start 5 mg (74 tabs) tablets,dose pack 5 mg PO BID Qty: 74 0RF Rx Instructions: Take Eliquis 10mg BID for 4 more days(07/14/22) and then switch to 5mg BID daily for next 3-6 months. No Action Eliquis 5 mg tablet 5 mg PO BID Patient Comments: TAKE 1 TABLET BY MOUTH TWICE A DAY pantoprazole 40 mg tablet,delayed release (DR/EC) 40 mg PO DAILY Patient Comments: TAKE 1 TABLET BY MOUTH EVERY DAY levetiracetam [Keppra] 750 mg tablet 750 mg PO BID Referrals: Bina Melgar FNP-C [Primary Care Provider] - Patient/Caregiver Discharge Instructions Discharge Activity: activity as tolerated Other Discharge Diet Instructions: Eat a high-fiber diet when you have diverticulosis. Fiber softens the stool and helps prevent constipation. It also can help decrease pressure in the colon and help prevent flare-ups of diverticulitis. OK to eat: Bran, whole wheat bread and whole grain cereals such as oatmeal Brown and wild rice Whole wheat pasta Canned or cooked fruit without seeds or skin, such as applesauce and melon Canned or well cooked vegetables without seeds and skin Dairy products such as cheese, milk and yogurt Eggs Meat that is ground or tender and well cooked Avoid popcorn, nuts and seeds Education Materials: Diverticulosis Diverticulitis, Discharge Instructions for ... Print Language: Slovak Stand Alone Forms: Solange Award Info., Patient Portal Info Letter, Work/Release Restrictions Discharge Order Discharge Orders: Discharge (Routine); Ordered 12/24/24 Ordered By: Ga العراقي Quality Discharge Quality Measures VTE prophylaxis
--- NOTE | 2024-12-24 15:33 | PC.SS ---
Patient is alert/oriented. He was able to verify demographics. Patient resides alone. He is independent with ADL's. Patient was admitted for abdominal pain. Patient states he does not use any DME regularly. He has a cane he uses as needed. Patient states he resides next door to his [employer] worker. Patient's [employer] worker is Woody Mike. Patient does not recall his phone number. Pharmacy: [facility]. PCP: Dr. Mukherjee. Last appt. was in November. Patient verbalized he would like his [employer] worker/friend to be his alt medical decision maker. Discharge plan is to return home. Possible d/c home today. Carerprovider will transport home.
== END 2024-12-24 13:39 | disposition home or self-care (01) ==
LOC: SERX 21:58 → SERHOLD 23:05 → S3NX 12-22 09:55
PROVIDERS: Internal Medicine; Nurse Practitioner Primary Care; Admitting Provider Student in an Organized Health Care Education/Training Program; Emergency Provider Emergency Medicine; PCP Nurse Practitioner Family; Visit Provider Student in an Organized Health Care Education/Training Program
DX: N17.9 Acute kidney failure, unspecified (principal); K57.32 Diverticulitis of large intestine without perforation or abscess without bleeding; Z86.711 Personal history of pulmonary embolism; Z79.84 Long term (current) use of oral hypoglycemic drugs; N39.0 Urinary tract infection, site not specified; N18.32 Chronic kidney disease, stage 3b; Z79.01 Long term (current) use of anticoagulants; I12.9 Hypertensive chronic kidney disease with stage 1 through stage 4 chronic kidney disease, or unspecified chronic kidney disease; G40.909 Epilepsy, unspecified, not intractable, without status epilepticus; F17.200 Nicotine dependence, unspecified, uncomplicated; E87.5 Hyperkalemia; E11.22 Type 2 diabetes mellitus with diabetic chronic kidney disease; J44.9 Chronic obstructive pulmonary disease, unspecified; Z01.810 Encounter for preprocedural cardiovascular examination
CPT/HCPCS: 36415; 71046; 74176; 80048; 80053; 80307; 81001; 83605; 83615; 83690; 83735; 83880; 84100; 84145; 84484; 85025; 85610; 85730; 87040; 87077; 87086; 87186; 93005; 96361; 96365; 96366; 96367; 99285; G0378; J1815; J2470; J2543; J7030; A9270